=== PATIENT | female | born 1990 | race Two or more races ===

== ENCOUNTER 2016-10-24 03:21 | Emergency (ER) | payer OTHER ==
[2016-10-24 04:11] VITALS: BMI 22.4
[2016-10-24] MEDS ORDERED: CEFAZOLIN 1 GM in DEXTROSE 5%-WATER - 50 ML IVPB ONE (04:48)
[2016-10-24] MEDS ORDERED: AMPICILLIN NA/SULBACTAM NA 1.5 GM in SODIUM CHLORIDE 100 ML IVPB ONE (04:49)
--- NOTE | 2016-10-24 04:50 | PDOC ---
[id number] is a 26 year old female with no significant past medical history who presents to the ED complaining of 2 weeks of progressively worsening pain at her sacrum which is worse with positional changes. She states she was started on Baclofen without any apparent relief. She is here today for persistence of her symptoms. She endorses chills today. No fever, nausea, vomiting, diarrhea. No numbness, tingling, or bladder/bowel incontinence. <Allie Kemp - Last Filed: 10/24/16 05:02> <Radha Peñaloza - Last Filed: 10/25/16 00:04> - General Chief Complaint: Back Pain Stated Complaint: LOW BACK PAIN Time Seen by Provider: 10/24/16 03:53 Past History <Allie Kemp - Last Filed: 10/24/16 05:02> - Past Medical History Other medical history: disc narrowing low back - Psycho/Social/Smoking Cessation Hx Suicidal Ideation: No Smoking History: Never smoked <Radha Peñaloza - Last Filed: 10/25/16 00:04> - Past Medical History Allergies/Adverse Reactions: Allergies Allergy/AdvReac Type Severity Reaction Status Date / Time No Known Allergies Allergy Verified 10/24/16 03:41 Home Medications: Ambulatory Orders Amoxicillin/Potassium Clav [Augmentin 875-125 Tablet] 1 each PO BID #14 tablet 10/24/16 Baclofen 10 mg PO ASDIR 10/24/16 Naproxen [Naprosyn -] 500 mg PO BID 10/24/16 Oxycodone HCl/Acetaminophen [Percocet 5/325 -] 1 tab PO Q6H #20 tablet MDD 4 Review of Systems - Review of Systems Able to Perform ROS?: Yes Comments:: 10/24/16 05:33 GENERAL/CONSTITUTIONAL: +Chills. No fever. No weakness. HEAD, EYES, EARS, NOSE AND THROAT: No change in vision. No ear pain or discharge. No sore throat CARDIOVASCULAR: No chest pain or shortness of breath. RESPIRATORY: No cough, wheezing, or hemoptysis. GASTROINTESTINAL: No nausea, vomiting, diarrhea or constipation. GENITOURINARY: No dysuria, frequency, or change in urination. MUSCULOSKELETAL: No joint or muscle swelling or pain. No neck or back pain. SKIN: +Pain and erythema at sacrum. No rash NEUROLOGIC: No headache, vertigo, loss of consciousness, or change in strength/ sensation. ENDOCRINE: No increased thirst. No abnormal weight change. HEMATOLOGIC/LYMPHATIC: No anemia, easy bleeding, or history of blood clots. ALLERGIC/IMMUNOLOGIC: No hives or skin allergy. <Allie Kemp - Last Filed: 10/24/16 05:02> *Physical Exam - Vital Signs Last Vital Signs Temp Pulse Resp BP Pulse Ox 99.4 F 100 H 16 115/74 100 10/24/16 03:44 10/24/16 03:44 10/24/16 03:44 10/24/16 03:44 10/24/16 03:44 - Physical Exam Comments: 10/24/16 05:34 GENERAL: Awake, alert, and fully oriented, in no acute distress HEAD: No signs of trauma EYES: PERRLA, EOMI, sclera anicteric, conjunctiva clear ENT: Auricles normal inspection, hearing grossly normal, nares patent, oropharynx clear without exudates. Moist mucosa NECK: Normal ROM, supple, no lymphadenopathy, JVD, or masses LUNGS: Breath sounds equal, clear to auscultation bilaterally. No wheezes, and no crackles HEART: Regular rate and rhythm, normal S1 and S2, no murmurs, rubs or gallops ABDOMEN: Soft, nontender, normoactive bowel sounds. No guarding, no rebound. No masses EXTREMITIES: Normal range of motion, no edema. No clubbing or cyanosis. No cords, erythema, or tenderness NEUROLOGICAL: Cranial nerves II through XII grossly intact. Normal speech, normal gait SKIN: +Pylonidal cyst. Warm, Dry, normal turgor, no rashes noted. <Allie Kemp - Last Filed: 10/24/16 05:02> - Vital Signs Last Vital Signs Temp Pulse Resp BP Pulse Ox 99.4 F 100 H 16 115/74 100 10/24/16 03:44 10/24/16 03:44 10/24/16 03:44 10/24/16 03:44 10/24/16 03:44 <Radha Peñaloza - Last Filed: 10/25/16 00:04> Procedures - Incision and Drainage I&D Site: Bilateral: Buttock (pilonidal abscess at the cleft) Anesthesia: 1% Lidocaine w/ Epi Blade Size: 11 Iodinated Packin in Plain Packing: Yes Complications: none <Radha Peñaloza - Last Filed: 10/25/16 00:04> ED Treatment Course - LABORATORY CBC & Chemistry Diagram: 10/24/16 05:03 10/24/16 05:03 <Radha Peñaloza - Last Filed: 10/25/16 00:04> Medical Decision Making - Medical Decision Making 10/25/16 00:03 Pt says that she has sciatics. In fact on exam she has a pilonidal cyst preventing her from being able to sit. Cyst was drained and pt given abx. Retunr in 24 hrs for packing removal. <Radha Peñaloza - Last Filed: 10/25/16 00:04> *DC/Admit/Observation/Transfer - Attestations Scribe Attestion: 10/24/16 05:36 Documentation prepared by Allie Kemp, acting as medical lab specialist for Radha Peñaloza MD. <Allie Kemp - Last Filed: 10/24/16 05:02> - Discharge Dispostion Admit: No <Radha Peñaloza - Last Filed: 10/25/16 00:04> Diagnosis at time of Disposition: Pilonidal abscess of herbie cleft - Discharge Dispostion Disposition: HOME Condition at time of disposition: Improved - Prescriptions Prescriptions: Amoxicillin/Potassium Clav [Augmentin 875-125 Tablet] 1 each PO BID #14 tablet Oxycodone HCl/Acetaminophen [Percocet 5/325 -] 1 tab PO Q6H #20 tablet MDD 4 - Patient Instructions Printed Discharge Instructions: Pilonidal Cyst, DI for Incision and Drainage of a Skin Abscess
[2016-10-24 05:16] LABS: BASOPHIL 0.4 % (0-2.0); EOSINOPHIL 0.2 % (0-4.5); MCH 30.5 pg (25.7-33.7); MCHC 33.5 g/dl (32.0-36.0); MEAN CELL VOLUME 91.1 fl (80-96); MEAN PLT VOLUME 8.7 fl (7.5-11.1); NEUTROPHILS 79.5 % (42.8-82.8); PLATELET COUNT 293 K/MM3 (134-434); RDW 12.2 % (11.6-15.6); WHITE BLOOD COUNT 15.7 K/mm3 (4.0-10.0)
[2016-10-24 05:48] LABS: GLUCOSE,RANDOM 104 mg/dL (74-106)
[2016-10-24 05:49] LABS: ALBUMIN 3.9 g/dl (3.4-5.0); ANION GAP 6 (8-16); BILIRUBIN,TOTAL 0.4 mg/dL (0.2-1.0); CALCIUM 7.3 mg/dL (8.5-10.1); CO2 29 mmol/L (21-32); COCKROFT - GAULT 114.9455; CREATININE 0.6 mg/dL (0.55-1.02); SGOT/AST 10 U/L (15-37); TOT PROT 7.2 g/dl (6.4-8.2)
[2016-10-24 05:50] LABS: ALK PHOS 55 U/L (45-117); SGPT/ALT 20 U/L (12-78)
[2016-10-24] MEDS ORDERED: LIDOCAINE 2%/EPINEPHRINE 1:100000 (50 ML MD VIAL) INF ONE (05:54)
[2016-10-24] MEDS ORDERED: LIDOCAINE 1%/EPI 1:100000 (50 ML MULTI DOSE VIAL) ONE (05:56)
[2016-10-24] MEDS ORDERED: VERAPAMIL HCL 5 MG/2 ML VIAL IVPUSH ONE (06:02)
[2016-10-24] MEDS ORDERED: MIDAZOLAM HCL 2 MG/2 ML SINGLE DOSE VIAL ONE (06:03)
[2016-10-24] MEDS ORDERED: morphine CARPU-JECT 2 MG/1 ML DISP.SYRIN ONE (06:10)
[2016-10-24] MEDS ORDERED: ONDANSETRON 4 MG/2 ML VIAL ONE (06:10)
[2016-10-24] MEDS ORDERED: morphine CARPU-JECT 2 MG/1 ML DISP.SYRIN IVPUSH ONE (06:14)
[2016-10-24] MEDS ORDERED: ONDANSETRON 4 MG/2 ML VIAL IVPUSH ONE (06:14)
[2016-10-24] MEDS ORDERED: MIDAZOLAM HCL 2 MG/2 ML SINGLE DOSE VIAL IVPUSH ONE (06:53)
[2016-10-24 07:06] VITALS: BP 112/69; PULSE 76; TEMP 97.8
== END 2016-10-24 07:07 | disposition home or self-care (01) ==
LOC: JER 03:21
PROC: 0H98XZZ Drainage of Buttock Skin, External Approach (ICD-10-PCS; principal; 2016-10-24)
PROC: 3E03329 Introduction of Other Anti-infective into Peripheral Vein, Percutaneous Approach (ICD-10-PCS; 2016-10-24)
PROC: 3E033NZ Introduction of Analgesics, Hypnotics, Sedatives into Peripheral Vein, Percutaneous Approach (ICD-10-PCS; 2016-10-24)
DX: L05.01 Pilonidal cyst with abscess (principal)
CPT/HCPCS: 10080; 36415; 80053; 85025; 87070; 87205; 96365; 96375; 99283-25

== ENCOUNTER 2016-10-25 09:08 | Emergency (ER) | payer OTHER ==
[2016-10-25 09:11] VITALS: BP 136/68; PULSE 87; TEMP 98; BMI 22.4
[2016-10-25] MEDS ORDERED: IBUPROFEN 600 MG TABLET (FP) PO ONE (09:29)
--- NOTE | 2016-10-25 09:40 | PDOC ---
Suture Removal/Wound Check HPI - History of Present Illness Chief Complaint: Revisit,Wound Recheck Stated Complaint: FOLLOW UP, REVISIT Time Seen by Provider: 10/25/16 09:22 History Source: Yes: Patient Exam Limitations: Yes: No Limitations [facility] Date of Last ED visit: 10/24/16 - Previous ED Treatment Type of procedure performed on last visit: Yes: I&D of Abscess Tetanus Immunization: Yes: Up to Date Antibiotics Prescribed: Yes Past History - Past Medical History Allergies/Adverse Reactions: Allergies No Known Allergies Allergy (Verified 10/25/16 09:11) Home Medications: Ambulatory Orders Amoxicillin/Potassium Clav [Augmentin 875-125 Tablet] 1 each PO BID #14 tablet 10/24/16 Baclofen 10 mg PO ASDIR 10/24/16 Naproxen [Naprosyn -] 500 mg PO BID 10/24/16 Oxycodone HCl/Acetaminophen [Percocet 5/325 -] 1 tab PO Q6H #20 tablet MDD 4 General: Yes: no pertinent history - Social History Smoking Status: Never smoked Suture Removal/Wound Check PE - Physical Exam Laceration/Wound Check Symptoms: reports: Pain *Review of Systems - Review of Systems Able to Perform ROS?: Yes Constitutional: No: Symptoms Reported HEENTM: No: Symptoms Reported Respiratory: No: Symptoms reported Cardiac (ROS): No: Symptoms Reported ABD/GI: No: Symptoms Reported : No: Symptoms Reported Musculoskeletal: No: Symptoms Reported Integumentary: Yes: Symptoms Reported Procedures - Additional Procedures Progress: 10/25/16 09:36 packing removed from pilonidal abscess, sterile gauze placed ED Treatment Course - Medications Given in the ED: ED Medications Discontinued Medications Generic Name Dose Route Start Last Admin Trade Name Freq PRN Reason Stop Dose Admin Ibuprofen 800 mg 10/25/16 09:29 10/25/16 09:30 Motrin - PO 10/25/16 09:30 800 mg ONCE ONE Administration Medical Decision Making - Medical Decision Making 10/25/16 09:36 cc: packing removal s/p pilonidal abscess drained pt has pain states percocet makes her vomit area is dry scant drainage , no redness or flucutnace dry sterile dressing placed motrin for pain refer to surgery for follow up *DC/Admit/Observation/Transfer Diagnosis at time of Disposition: Wound check, abscess - Discharge Dispostion Disposition: HOME Condition at time of disposition: Good - Referrals Referrals: Argenis Villegas MD [Primary Care Provider] - [facility] [Provider Group] - Patient Instructions Additional Instructions: ltake motrin 800mg every 6hrs for pain warm showers keep are clean and dry follow with the surgeons listed below for follow up, call today to set up a follow up appointment
== END 2016-10-25 09:43 | disposition home or self-care (01) ==
LOC: JERFT 09:08
DX: Z48.01 Encounter for change or removal of surgical wound dressing (principal)
CPT/HCPCS: 99281-25

== ENCOUNTER 2018-08-21 06:15 | Inpatient (IN) | payer OTHER ==
[2018-08-21] MEDS ORDERED: ELECTROLYTE-148 SOLN 1,000 ML IV SCH (06:45)
[2018-08-21] MEDS ORDERED: AMPICILLIN - 2 GM in SODIUM CHLORIDE 100 ML IVPB ONE (07:00)
[2018-08-21] MEDS ORDERED: AMPICILLIN SODIUM 2 GM VIAL ONE (07:03)
[2018-08-21] MEDS ORDERED: SODIUM CHLORIDE 100 ML IVPB ONE (07:03)
[2018-08-21 07:25] LABS: BASO % 0.4 % (0-2.0); EOS % 0.2 % (0-4.5); HEMATOCRIT 40.4 % (32.4-45.2); HEMOGLOBIN 13.8 GM/dL (10.7-15.3); LYMPH % 15.8 % (8-40); MCH 32.7 pg (25.7-33.7); MCHC 34.2 g/dl (32.0-36.0); MEAN CELL VOLUME 95.6 fl (80-96); MONO % 4.5 % (3.8-10.2); NEUT % 79.1 % (42.8-82.8); PLATELET COUNT 162 K/MM3 (134-434); RBC 4.23 M/mm3 (3.60-5.2); RDW 13.2 % (11.6-15.6); WHITE BLOOD COUNT 11.5 K/mm3 (4.0-10.0)
[2018-08-21 07:31] VITALS: BMI 26.9
[2018-08-21 07:38] LABS: INR 0.87 (0.83-1.09); PROTHROMBIN TIME (PATIENT) 10.2 SEC (9.7-13.0)
[2018-08-21 07:41] LABS: ACTIVATED PTT 30.5 SECONDS (25.2-36.5)
[2018-08-21 07:44] LABS: ANION GAP 8 MMOL/L (8-16); BLOOD UREA NITROGEN 7 mg/dL (7-18); CALCIUM 8.7 mg/dL (8.5-10.1); CHLORIDE 107 mmol/L (98-107); CO2 22 mmol/L (21-32); CREATININE 0.6 mg/dL (0.55-1.3); GLUCOSE,RANDOM 83 mg/dL (74-106); POTASSIUM 4.1 mmol/L (3.5-5.1); SODIUM 137 mmol/L (136-145)
[2018-08-21] MEDS ORDERED: OXYTOCIN 20 UNITS in 0.9% NS 20 UNIT/1,000 ML INFUS.BAG IV ONE ×2 (07:54→10:47)
[2018-08-21] MEDS ORDERED: BUTORPHANOL TARTRATE 1 MG/ML VIAL ONE (08:29)
[2018-08-21] MEDS ORDERED: PROMETHAZINE HCL 25 MG/1 ML VIAL ONE (08:29)
[2018-08-21] MEDS ORDERED: LIDOCAINE HCL 1% PRESERVATIVE FREE - 30ML VIAL ONE (09:15)
[2018-08-21] MEDS ORDERED: BUTORPHANOL TARTRATE 1 MG/ML VIAL IVPB ONE (09:29)
[2018-08-21] MEDS ORDERED: PROMETHAZINE HCL 25 MG/1 ML VIAL IVPB ONE (09:29)
[2018-08-21] MEDS ORDERED: DEXTROSE 5%-LACTATED RINGERS 1,000 ML IV SCH (09:30)
--- NOTE | 2018-08-21 09:36 | HP ---
Past Medical History - Admission Chief Complaint: Labor pain History of Present Illness: 28 yo @ 39 weeks gestation, EDC 08/25/18, admitted for labor pain. History Source: Patient Limitations to Obtaining History: No Limitations - Past Medical History ...: 2 ...Para: 1 ...Term: 1 ...: 0 ...Spon : 0 ...Induced : 0 ...Multiple Gestation: 0 ...LMP: 11/21/17 ... Weeks Gestation by Dates: 39.0 ...EDC by Dates: 08/28/18 ...EDC by Sono: 08/25/18 - Past Surgical History Past Surgical History: Yes: None Hx Myomectomy: No Hx Transabdominal Cerclage: No - Smoking History Smoking history: Never smoked Have you smoked in the past 12 months: No - Alcohol/Substance Use Hx Alcohol Use: No History of Substance Use: reports: None - Social History Usual Living Arrangement: Yes: With Spouse History of Recent Travel: No Home Medications - Allergies Allergies/Adverse Reactions: Allergies Allergy/AdvReac Type Severity Reaction Status Date / Time No Known Allergies Allergy Verified 08/14/18 12:08 - Home Medications Home Medications: Ambulatory Orders One Tablet 1 tab PO DAILY 08/14/18 Family Disease History - Family Disease History Family History: Unremarkable Review of Systems - Review of Systems Constitutional: reports: No Symptoms Eyes: reports: No Symptoms HENT: reports: No Symptoms Neck: reports: No Symptoms Cardiovascular: reports: No Symptoms Respiratory: reports: No Symptoms Gastrointestinal: reports: No Symptoms Genitourinary: reports: Pain Breasts: reports: No Symptoms Reported Musculoskeletal: reports: No Symptoms Integumentary: reports: No Symptoms Neurological: reports: No Symptoms Psychiatric: reports: No Symptoms Pain Intensity: 8 Physical Exam - Maternity Vital Signs: Vital Signs Temperature 97.9 F 08/21/18 07:15 Pulse Rate 87 08/21/18 07:15 Respiratory Rate 18 08/21/18 07:15 Blood Pressure 115/76 08/21/18 07:15 O2 Sat by Pulse Oximetry (%) Constitutional: Yes: Well Nourished Eyes: Yes: Conjunctiva Clear HENT: Yes: Atraumatic Neck: Yes: Supple Cardiovascular: Yes: Regular Rate and Rhythm Lungs: Clear to auscultation Breast(s): Yes: WNL - Abdominal Exam/OB Number of Fetuses: Single Presentation: Vertex Contractions: Yes Intensity: Mod/Strong - Vaginal Exam/OB Dilatation (cm): 4 Effacement (%): 100 Amniotic Membrane Status: Intact Station: -1 - Physical Exam ...Motor Strength: WNL Psychiatric: Yes: Alert, Oriented - Labs Lab Results: CBC, BMP 08/21/18 07:05 08/21/18 07:05 Problem List - Problems (1) Pain during labor Code(s): O99.89 - OTH DISEASES AND CONDITIONS COMPL PREG/CHLDBRTH; R52 - PAIN, UNSPECIFIED Assessment/Plan Active labor Admit to L&D Analgesia as needed Anticipate
[2018-08-21] MEDS ORDERED: BENZOCAINE 20% 57 GM BOTTLE TP PRN (09:38)
[2018-08-21] MEDS ORDERED: IBUPROFEN 600 MG TABLET (FP) PO PRN (09:38)
[2018-08-21] MEDS ORDERED: WITCH HAZEL 50% (TUCKS) 40 PAD/JAR PAD TP PRN (09:38)
[2018-08-21] MEDS ORDERED: ACETAMINOPHEN 325 MG TABLET (FP) PO PRN (09:38)
[2018-08-21] MEDS ORDERED: METHYLERGONOVINE MALEATE 0.2 MG/1 ML AMP IM PRN (09:38)
[2018-08-21] MEDS ORDERED: BENZOCAINE 28 GM HEMORRHOIDAL OINTMENT TP PRN (09:38)
[2018-08-21] MEDS ORDERED: BISACODYL 10 MG SUPP.RECT RC PRN (09:38)
--- NOTE | 2018-08-21 09:38 | PN ---
Delivery - Delivery Vaginal Delivery: Spontaneous Type of Anesthesia: Local Episiotomy/Laceration: 2nd degree EBL (cc): 250 Delivery, Single - Feeding Plan Initial Plan: Elected not to breastfeed exclusively throughout hospitalization Remarks - Remarks Remarks: Normal spontaneous vaginal delivery of a live infant boy over second degree laceration. Nose / Oropharynx suctioned @ perineum. Cord clamped and cut. Baby handed to nurse. Placenta expelled spontaneously intact. Laceration repaired with 2.0 Biosyn.
[2018-08-21] MEDS ORDERED: OXYTOCIN 20 UNITS in 0.9% NS 20 UNIT/1,000 ML INFUS.BAG IV SCH (09:45)
[2018-08-21] MEDS ORDERED: IBUPROFEN 600 MG TABLET (FP) PO ONE (09:50)
[2018-08-21] MEDS ORDERED: ACETAMINOPHEN 325 MG TABLET (FP) ONE (09:50)
[2018-08-21] MEDS: PRENATAL VITAMINS W/ FOLIC ACID TABLET (FP) PO SCH (10:37)
[2018-08-21] MEDS ORDERED: AMPICILLIN - 1 GM in SODIUM CHLORIDE 100 ML IVPB SCH (11:00)
[2018-08-21] MEDS: FERROUS SO4 325 MG TABLET (FP) PO SCH (18:12)
--- NOTE | 2018-08-22 07:00 | PN ---
Post Progress Note - Subjective Subjective: 28 yo Para 2 status post vaginal delivery, seen and evaluated. Doing well. Post Day: 1 Type of Delivery: Vital Signs: Vital Signs Temperature 98.1 F 08/22/18 06:00 Pulse Rate 80 08/22/18 06:00 Respiratory Rate 20 08/22/18 06:00 Blood Pressure 111/72 08/22/18 06:00 O2 Sat by Pulse Oximetry (%) 100 08/21/18 10:54 Breast Exam: Yes: Soft Uterus: Yes: Fundus Firm Abdomen/GI: Yes: Abdomen soft, Tolerating PO Lochia: Yes: Rubra Lochia, amount: Moderate Extremities: Yes: Calves non-tender Perineum: Yes: Laceration (Healing) Activity: Ambulating - Labs Labs: CBC WBC 11.5 K/mm3 (4.0-10.0) H 08/21/18 07:05 RBC 4.23 M/mm3 (3.60-5.2) 08/21/18 07:05 Hgb 13.8 GM/dL (10.7-15.3) 08/21/18 07:05 Hct 40.4 % (32.4-45.2) 08/21/18 07:05 MCV 95.6 fl (80-96) 08/21/18 07:05 MCH 32.7 pg (25.7-33.7) 08/21/18 07:05 MCHC 34.2 g/dl (32.0-36.0) 08/21/18 07:05 RDW 13.2 % (11.6-15.6) 08/21/18 07:05 Plt Count 162 K/MM3 (134-434) D 08/21/18 07:05 MPV 11.0 fl (7.5-11.1) D 08/21/18 07:05 Absolute Neuts (auto) 9.1 K/mm3 (1.5-8.0) H 08/21/18 07:05 Neutrophils % 79.1 % (42.8-82.8) 08/21/18 07:05 Lymphocytes % 15.8 % (8-40) D 08/21/18 07:05 Monocytes % 4.5 % (3.8-10.2) 08/21/18 07:05 Eosinophils % 0.2 % (0-4.5) 08/21/18 07:05 Basophils % 0.4 % (0-2.0) 08/21/18 07:05 Nucleated RBC % 0 % (0-0) 08/21/18 07:05 Problem List - Problems (1) Pain during labor Code(s): O99.89 - OTH DISEASES AND CONDITIONS COMPL PREG/CHLDBRTH; R52 - PAIN, UNSPECIFIED (2) Status post normal vaginal delivery Code(s): [id number] - Assessment/Plan Status post Stable Continue routine care
[2018-08-22 07:58] LABS: BASO % 0.2 % (0-2.0); EOS % 0.4 % (0-4.5); HEMATOCRIT 33.5 % (32.4-45.2); HEMOGLOBIN 11.6 GM/dL (10.7-15.3); LYMPH % 19.5 % (8-40); MCHC 34.5 g/dl (32.0-36.0); MEAN CELL VOLUME 95.6 fl (80-96); MEAN PLT VOLUME 10.4 fl (7.5-11.1); MONO % 5.2 % (3.8-10.2); NEUT % 74.7 % (42.8-82.8); PLATELET COUNT 147 K/MM3 (134-434); RBC 3.51 M/mm3 (3.60-5.2); RDW 13.7 % (11.6-15.6); WHITE BLOOD COUNT 13.4 K/mm3 (4.0-10.0)
[2018-08-22] MEDS: FERROUS SO4 325 MG TABLET (FP) PO SCH ×2 (09:25→18:04)
[2018-08-22] MEDS: PRENATAL VITAMINS W/ FOLIC ACID TABLET (FP) PO SCH (09:25)
[2018-08-22] MEDS ORDERED: SENNOSIDES/DOCUSATE COMBO (SENNA PLUS) TABLET (UD) PO PRN (22:00)
[2018-08-23] MEDS: FERROUS SO4 325 MG TABLET (FP) PO SCH (09:18)
[2018-08-23] MEDS: PRENATAL VITAMINS W/ FOLIC ACID TABLET (FP) PO SCH (09:18)
[2018-08-23 11:46] VITALS: BP 124/81; PULSE 82; TEMP 97.9
--- NOTE | 2018-08-23 14:15 | DS ---
Physical Exam-SATELLITE TELEVISION INSTALLER Vital Signs: Vital Signs Temperature 97.9 F 08/23/18 11:44 Pulse Rate 82 08/23/18 11:44 Respiratory Rate 20 08/23/18 11:44 Blood Pressure 124/81 08/23/18 11:44 O2 Sat by Pulse Oximetry (%) 100 08/21/18 10:54 Constitutional: Yes: Well Nourished Eyes: Yes: Conjunctiva Clear HENT: Yes: Atraumatic Neck: Yes: Supple Cardiovascular: Yes: Regular Rate and Rhythm Respiratory: Yes: Regular Gastrointestinal: Yes: Normal Bowel Sounds ...Rectal Exam: Yes: WNL External Genitalia: Yes: Normal Vaginal Exam: Yes: Normal Cervix: Yes: Normal Uterus: Yes: Firm ....Post : Yes: Uterus firm, Moderate lochia serosa Extremities: Yes: WNL Neurological: Yes: Alert, Oriented ...Motor Strength: WNL Psychiatric: Yes: Alert, Oriented Labs: CBC, BMP 08/22/18 07:14 08/21/18 07:05 Delivery - Delivery Vaginal Delivery: Spontaneous Type of Anesthesia: Local Episiotomy/Laceration: 2nd degree EBL (cc): 250 Delivery, Single - Stages of Labor Date 1st Stage Initiatied: 08/21/18 Time 1st Stage Initiated: 03:00 Date 2nd Stage Initiated: 08/21/18 Time 2nd Stage Initiated: 08:50 Date of Delivery: 08/21/18 Time of Delivery: 09:09 Time Placenta Delivered: 09:12 - 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 Present: Keo: Carlo Valle Gender: Male Weight: 5 lb 7 oz Position: Right, OA Total Hours ROM (Hrs/Mins): 1hr/27min - 1 Minute Total Score: 9 5 Minutes Total Score: 9 - [place] Feeding Plan Initial Plan: Elected not to breastfeed exclusively throughout hospitalization Discharge Summary Reason For Visit: LABOR ADMIT Procedures: Principal: Normal spontaneous vaginal delivery Hospital Course: Routine care Condition: Good - Instructions Diet, Activity, Other Instructions: Regular diet No douching, no sexual intercourse x 6 weeks F/U in office in 6 weeks Disposition: HOME - Home Medications Comprehensive Discharge Medication List: Ambulatory Orders One Tablet 1 tab PO DAILY 08/14/18
== END 2018-08-23 11:25 | disposition home or self-care (01) | DRG 560 ==
LOC: JDEL 06:15 → JLDR 06:45 → J3W 11:22
PROVIDERS: ADMIT Obstetrics & Gynecology; ATTEND Obstetrics & Gynecology
PROC: 10E0XZZ Delivery of Products of Conception, External Approach (ICD-10-PCS; principal; 2018-08-21)
PROC: 0KQM0ZZ Repair Perineum Muscle, Open Approach (ICD-10-PCS; 2018-08-21)
DX: O70.1 Second degree perineal laceration during delivery (principal); Z3A.39 39 weeks gestation of pregnancy; Z37.0 Single live birth
CPT/HCPCS: 36415; 59409; 80048; 85025; 85610; 85730; 86593; 86850; 86900; 86901

== ENCOUNTER 2019-07-23 08:46 | Emergency (ER) | payer OTHER ==
[2019-07-23 08:56] VITALS: BP 105/75; PULSE 108; TEMP 99.3; BMI 24.2
[2019-07-23] MEDS ORDERED: ACETAMINOPHEN 325 MG TABLET (FP) PO ONE (09:02)
[2019-07-23] MEDS ORDERED: ACETAMINOPHEN 325 MG TABLET (FP) ONE (09:03)
--- NOTE | 2019-07-23 09:06 | PDOC ---
History of Present Illness - General Chief Complaint: Cold Symptoms Stated Complaint: COLD SYMPTOMS Time Seen by Provider: 07/23/19 08:59 History Source: Patient Exam Limitations: No Limitations - History of Present Illness Is this a multiple visit Asthma Patient?: No Associated Symptoms: reports: cough, muscle aches, nasal congestion. denies: chest pain/soreness, dizziness, earache, fever/chills, headache, lightheadedness , nasal drainage, shortness of breath, sinus infection, sore throat, wheezing Past History - Travel Traveled outside of the country in the last 30 days: No Close contact w/someone who was outside of country & ill: No - Past Medical History Allergies/Adverse Reactions: Allergies Allergy/AdvReac Type Severity Reaction Status Date / Time No Known Allergies Allergy Verified 08/14/18 12:08 Home Medications: Ambulatory Orders One Tablet 1 tab PO DAILY 08/14/18 Benzonatate [Tessalon Pearls -] 100 mg PO TID #21 capsule 07/23/19 Asthma: No Cancer: No Cardiac Disorders: No Diabetes: No HTN: No Seizures: No Thyroid Disease: No - Psycho Social/Smoking Cessation Hx Smoking History: Never smoked Have you smoked in the past 12 months: No Hx Alcohol Use: No Drug/Substance Use Hx: No Substance Use Type: None Hx Substance Use Treatment: No Respiratory Specific PMHX - Complaint Specific PMHX Hx Airway Support: No Review of Systems - Review of Systems Constitutional: Yes: Fever. No: Chills HEENTM: No: Nose Pain, Nose Congestion, Throat Swelling, Other Respiratory: Yes: Cough. No: Wheezing, Productive cough Cardiac (ROS): No: Chest Pain Musculoskeletal: No: Back Pain, Joint Pain Neurological: Yes: Headache. No: Numbness, Paresthesia, Seizure, Tingling, Tremors, Weakness, Dizziness Psychiatric: No: Frequent Crying Endocrine: No: Excessive Sweating Hematologic/Lymphatic: No: Anemia, Blood Clots, Easy Bleeding *Physical Exam - Vital Signs Last Vital Signs Temp Pulse Resp BP Pulse Ox 99.3 F 108 H 16 105/75 100 07/23/19 08:54 07/23/19 08:54 07/23/19 08:54 07/23/19 08:54 07/23/19 08:54 - Physical Exam General Appearance: Yes: Nourished HEENT: positive: EOMI, KELY Respiratory/Chest: positive: Lungs Clear, Normal Breath Sounds Cardiovascular: positive: Regular Rhythm, Regular Rate, S1, S2 Gastrointestinal/Abdominal: positive: Normal Bowel Sounds Extremity: positive: Normal Capillary Refill, Normal Inspection Integumentary: positive: Normal Color Neurologic: positive: housekeeper II-XII NML intact, Fully Oriented, Alert, Normal Mood/ Affect, Normal Response, Motor Strength 5/5 Medical Decision Making - Medical Decision Making 07/23/19 09:05 28 years old female with no prior medical history presents with fever, body aches, cough for 2 days. Patient is a non-smoker and denies any recent foreign travel. Lungs are clear on exam rapid flu sent patient does have a low-grade fever. Will rule out influenza. 07/23/19 11:53 Rapid flu was negative. Discharge - Discharge Information Problems reviewed: Yes Clinical Impression/Diagnosis: Viral syndrome Condition: Stable Disposition: HOME - Admission No - Additional Discharge Information Prescriptions: Benzonatate [Tessalon Pearls -] 100 mg PO TID #21 capsule Prescription Drug Monitoring Program (I-STOP) results: I-STOP not reviewed - Follow up/Referral Referrals: Estelle Freeman MD [Primary Care Provider] - - Patient Discharge Instructions Patient Printed Discharge Instructions: DI for Viral Upper Respiratory Infection -- Adult Additional Instructions: Your flu swab was negative today. Please take cough medication as prescribed. Increase fluids you may take Tylenol Motrin for fever. Follow-up with your primary care doctor. Return to the emergency room if worsening symptoms occurs. - Post Discharge Activity Work/Back to School Note: Back to Work
== END 2019-07-23 09:44 | disposition home or self-care (01) ==
LOC: JERFT 08:46
DX: J06.9 Acute upper respiratory infection, unspecified (principal); B97.89 Other viral agents as the cause of diseases classified elsewhere
CPT/HCPCS: 87804; 99283-25